=== PATIENT | female | born 1945 | race Caucasian/White ===

== ENCOUNTER → 2023-11-29 09:41 | Outpatient (REF) | payer OTHER, SELFPAY | LOC: HWRAD 09:41 | PROVIDERS: ATTENDING PHYSICIAN Specialist; FAMILY PHYSICIAN Family Medicine | DX: Z85.528 Personal history of other malignant neoplasm of kidney (principal) | CPT/HCPCS: 76775 ==

== ENCOUNTER → 2024-04-24 08:36 | Outpatient (REF) | payer OTHER, SELFPAY | LOC: HWWDC 08:36 | PROVIDERS: ATTENDING PHYSICIAN Family Medicine | DX: Z12.31 Encounter for screening mammogram for malignant neoplasm of breast (principal) | CPT/HCPCS: 77063; 77067 ==

== ENCOUNTER → 2025-04-02 08:15 | Outpatient (REF) | payer OTHER, SELFPAY | LOC: RCS 08:15 | PROVIDERS: ATTENDING PHYSICIAN Family Medicine | DX: R01.1 Cardiac murmur, unspecified (principal); Z68.29 Body mass index [BMI] 29.0-29.9, adult | CPT/HCPCS: 93306 ==

== ENCOUNTER → 2025-04-17 06:43 | Outpatient (REF) | payer OTHER, SELFPAY | LOC: RAD 06:43 | PROVIDERS: ATTENDING PHYSICIAN Family Medicine | DX: K65.2 Spontaneous bacterial peritonitis (principal); R19.4 Change in bowel habit; Z85.038 Personal history of other malignant neoplasm of large intestine | CPT/HCPCS: 74177; Q9967 ==

== ENCOUNTER → 2025-05-07 08:22 | Outpatient (REF) | payer OTHER, SELFPAY | LOC: HWWDC 08:22 | PROVIDERS: ATTENDING PHYSICIAN Family Medicine | DX: Z12.31 Encounter for screening mammogram for malignant neoplasm of breast (principal) | CPT/HCPCS: 77063; 77067 ==

== ENCOUNTER 2025-06-18 01:44 | Emergency (ER) | payer OTHER, SELFPAY ==
[2025-06-18 01:50] VITALS: BP 172/82
[2025-06-18 02:54] VITALS: BMI 33.5
[2025-06-18 02:55] VITALS: BP 156/71
[2025-06-18 03:00] VITALS: BP 140/64
[2025-06-18 04:09] VITALS: BP 154/78
--- NOTE | 2025-06-18 04:28 | ED.GENMED ---
History of Present Illness
General
Chief Complaint: Musculo-Skeletal Complaint
Source: patient
Exam Limitations: none
Time Seen by Provider: 06/18/25 04:08
Nursing documentation reviewed up to this point in time: agreed with
History of Present Illness
History of Present Illness:
Patient presents to ED secondary to sudden onset of posterior right leg pain. Patient states that she had just returned from 12-day vacation in [place]. When she got off the airplane and was walking in the airport, she experienced weakness of the
right leg followed by 'popping sensation'. Since then, patient has had difficulty ambulating due to pain. Patient denies any pain at rest. Denies swelling or redness. 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 Denies direct trauma.
Past History
Past History
ED Past Medical History: Cancer, HTN and Other (PE)
ED Past Surgical History: Appendectomy, Bowel resection and Urological
Social History
Tobacco: Non-smoker
Alcohol: None
Drug: None
Personal:
Living: with family
Employment: Retired
Family History
Family History: Other (Noncontributory)
Review of Systems
Review of Systems
Allergies reviewed?: Yes
All Other Systems: ROS reviewed and negative except as documented in HPI and ROS
Constitutional: Reports no symptoms; Denies fever or chills
Musculoskeletal: Reports other (leg pain)
Skin: Reports no symptoms
Neurological: Reports no symptoms
Phy Exam
Physical Exam
Physical Exam:
Physical Exam
General: no apparent distress, not acutely ill. afebrile
Head: nc/at. eomi
Neck: supple. no meningeal signs.
Neuro: alert and oriented x 3. no focal neurological deficits
Skin: no rash
Psychiatric: well kept. interactive and cooperative
Extremities: no edema. no calf tenderness. mild tenderness to palpation over posterior thigh without swelling/erythema/ecchymosis
Course
Orders/Labs/Results
Orders:
Orders
06/18/25 02:13
Periph Venous Lwr Ext Rt US [US Periph Venous LOWER Ext RT] Urgent
Comment:
Reason For Exam: PAIN RECENT TRAVEL OVERSEAS
Vital Signs
Initial and Last Documented VS:
Initial Vital Signs
Temp Pulse Resp BP Pulse Ox
97.8 F 72 20 172/82 98
06/18/25 01:50 06/18/25 01:50 06/18/25 01:50 06/18/25 01:50 06/18/25 01:50
Last Documented Vital Signs
Temp Pulse Resp BP Pulse Ox
97.8 F 71 20 154/78 96
06/18/25 01:50 06/18/25 02:55 06/18/25 01:50 06/18/25 04:09 06/18/25 04:28
MDM/Problems Addressed
MDM/Problems Addressed:
Ultrasound negative for acute DVT. History and exam consistent with likely pain of musculoskeletal etiology, i.e. muscle strain. Otherwise, patient is afebrile, neurologically intact, and without any distress, at rest. As such, decision made to
discharge patient home with conservative treatment, i.e. Tylenol/Motrin, along with use of provided walker, until she follows up with orthopedic surgeon as an outpatient.
*Pulse Oximetry
SaO2: 96
Oxygen Mode of Delivery: Room air
Patient hypoxic: no
*Critical Care Note
Total Time (30-74mins, 75-104mins- exclusive of procedures): Not Applicable
ED Attending Note
-
Portions of this chart may have been created with voice recognition software.� Occasional wrong word or��sound alike� substitutions may have occurred due to the inherent limitations of voice recognition software.
Discharge Plan
Departure
Patient Disposition: Home (Routine Discharge)
Date of Disposition: 06/18/25
Time of Disposition: 04:28
Patient with high blood pressure during this ER visit?: Yes
Discharge Problem:
Acute leg pain
Instructions: Musculoskeletal Pain
Prescriptions:
No Action
cholecalciferol (vitamin D3) 2,000 UNITS tablet
2,000 units PO DAILY
cyanocobalamin (vitamin B-12) 1,000 MCG tablet
1,000 mcg PO DAILY
acetaminophen [Tylenol Extra Strength] 500 MG tablet
500 mg PO Q6HPRN PRN (Reason: mild pain)
multivitamin with folic acid [Tab-A-Berto] 1 TABLET tablet
1 tab PO DAILY
Eliquis 5 MG tablet
5 mg PO BID Qty: 100 0RF
valsartan 320 mg Tablet
320 mg PO DAILY
Referrals:
Kahlil Hung MD [Family Provider, [facility]]
Activity Restrictions/Additional Instructions:
As discussed, please follow-up with your primary care physician and/or orthopedic surgeon for reevaluation.
Interventions
Interventions:
*Risk Screen - Suicide Last Done: 06/18/25 01:50
*General Assessment Last Done: 06/18/25 03:00
*Neglect/Abuse Screening Last Done: 06/18/25 01:50
*ED- Fall Risk Assessment Last Done: 06/18/25 03:00
*ED COVID-19 Vaccine History Last Done: 06/18/25 03:00
*Nursing Disposition Last Done: 06/18/25 04:53
ED- Cardiac Assessment Last Done: 06/18/25 02:49
ED-Musculoskeletal Assessment Last Done: 06/18/25 02:49
ED- Pulmonary Assessment Last Done: 06/18/25 02:49
ED-Peripheral Vascular Assessment Last Done: 06/18/25 02:49
ED-Skin Assessment Last Done: 06/18/25 02:49
Discharge Date and Time
Discharge Date/Time: 06/18/25 04:54
Print Language: SLOVAK
== END 2025-06-18 04:54 | disposition home or self-care (01) ==
LOC: EMR 01:44
PROVIDERS: EMERGENCY PHYSICIAN Emergency Medicine; FAMILY PHYSICIAN Family Medicine
DX: M79.604 Pain in right leg (principal); I10 Essential (primary) hypertension; Z86.718 Personal history of other venous thrombosis and embolism; Z90.49 Acquired absence of other specified parts of digestive tract
CPT/HCPCS: 99284; 93971